=== PATIENT | male | born 1945 | race Caucasian/White ===

== ENCOUNTER 2018-04-23 19:00 | Inpatient (IN) ==
--- NOTE | 2018-04-23 19:54 | ED ---
HPI General Chief Complaint: Diabetic Stated Complaint: Diabetic Time Seen by Provider: 04/23/18 19:59 Source: patient, family () and EMS Mode of arrival: EMS Limitations: no limitations History of Present Illness HPI narrative: 73-year-old male presents to the emergency department from home by EMS transport after noticed him to have somnolence and an episode of 10 minutes of syncope or not responding to her. Paramedics noted patient was somnolent and had a low blood sugar and was administered D10. Patient's blood sugar was approximately 50. Upon arrival to the emergency department after D10 patient's blood sugar went up to 200 and then has dropped back down to 105. reports symptoms began approximate hour before she called paramedics. Patient states that he does not recall all details just members sitting in the car not feeling well while he was waiting for his to go to [employer] and come back out. states that she came back from [employer] and noticed that he was drowsy and that he stated that he did not feel well she gave him some candy did not seem to improve his symptoms he refused to have EMS called she was able to finally get him to the backseat and drive the car home when she came home she checked his blood sugar noticed it was 60 and she gave him some glucose but he will did not seem to take it and then he had a passing out spell and remained unresponsive to her until the paramedics arrived and they noticed his blood sugar to be less than 50 that gave him deep tendons mentation and started to improve in route to the hospital. There was no seizure activity noted. There was no trauma or injury noted. Patient denies any chest pain. Patient does complain of some headache not sudden onset not thunderclap and not worst ever. No medications were taken for headache pain. No nausea or vomiting. Patient did have marked diaphoresis consistent with hypoglycemic episode. Patient denies any pain at this time except for headache pain has no confusion at this time although feels somewhat forgetful has no blurred vision double vision or loss of vision. Patient denies any difficulty with speaking states that he has not had any difficulty speaking but while his blood sugar was low he did have some confusion but that resolved as his blood sugar has now returned to normal. MD complaint: Reports loss of consciousness and felt faint; Denies seizure Onset (ago): hour(s) Duration of episode: 1 -: minutes(s) ("about 10 minutes") Description of event: Reports post-event confusion; Denies tonic-clonic movements, focal shaking, incontinence, stopped breathing, lost pulse and CPR performed Prodromal symptoms: Reports headache, lightheaded and diaphoresis; Denies vision changes, chest pain, palpitations, heart racing, shortness of breath, vertigo and AICD discharge Witnessed: yes - by bystander () Context: Reports at rest; Denies during exertion, getting out of bed, after urination, standing up, new medication, medication non-compliance, alcohol use, illicit drug use, recent illness and related to severe pain Injuries sustained associated with event: Reports none Current symptoms: Reports headache and weakness History: Reports history of CAD (CABG); Denies seizure disorder, previous syncopal episode, seizure disorder, pacemaker, AICD and family history of sudden Treatments prior to arrival: Reports glucose and IV fluids Related Data Home Medications Medication Instructions Recorded Confirmed aspirin 81 mg PO DAILY 11/16/17 04/23/18 atorvastatin [Lipitor] 1 tab PO DAILY 11/16/17 04/23/18 carvedilol 12.5 mg PO BID 11/16/17 04/23/18 insulin NPH and regular human 20 unit SUB-Q TID 11/16/17 04/23/18 [Novolin 70/30 U-100 Insulin] insulin glargine [Lantus U-100 40 unit SUB-Q HS 11/16/17 04/23/18 Insulin] lisinopril 5 mg PO DAILY 11/16/17 04/23/18 Allergies Allergy/AdvReac Type Severity Reaction Status Date / Time No Known Allergies Allergy Verified 04/23/18 19:29 Review of Systems ROS: all other systems reviewed are negative [facility] Medical History Medical History DM type 2 (diabetes mellitus, type 2) (Acute) HTN (hypertension) (Acute) Heart attack (Acute) High cholesterol (Acute) Surgical History Surgical History H/O kidney removal (Acute) S/P CABG x 5 (Acute) Social History Social History Substance History: No History of Abuse Second Hand Smoke Exposure: No Smoking Status: Former smoker How Often Do You Have a Drink Containing Alcohol: Never Recent Travel in [facility] within the Last 8 Weeks: No Recent Out of Country Travel within the Last 8 Weeks: No Immunization History Tetanus Immunization: <5 Years Exam Narrative Exam Narrative: GENERAL: [-] SKIN: Focused skin assessment warm/dry. HEAD: Atraumatic. Normocephalic. EYES: Pupils equal and round. No scleral icterus. No injection or drainage. ENT: No nasal bleeding or discharge. Mucous membranes pink and moist. NECK: Trachea midline. No JVD. CARDIOVASCULAR: Regular rate and rhythm. No murmur appreciated. RESPIRATORY: No accessory muscle use. Clear to auscultation. Breath sounds equal bilaterally. GASTROINTESTINAL: Abdomen soft, non-tender, nondistended. Hepatic and splenic margins not palpable. MUSCULOSKELETAL: No obvious deformities. No clubbing. No cyanosis. No edema. NEUROLOGICAL: Awake and alert. No obvious cranial nerve deficits. Motor grossly within normal limits. Normal speech. PSYCHIATRIC: Appropriate mood and affect; insight and judgment normal. Course Initial Documented Vital Signs Temperature 98.9 F 04/23/18 19:15 Pulse Rate 51 L 04/23/18 19:15 Respiratory Rate 16 04/23/18 19:15 Blood Pressure 145/76 H 04/23/18 19:15 Pulse Oximetry 98 04/23/18 19:15 Last Documented Vital Signs Temperature 98.9 F 04/23/18 19:15 Pulse Rate 49 L 04/23/18 19:36 Respiratory Rate 16 04/23/18 19:36 Blood Pressure 141/72 H 04/23/18 19:36 Pulse Oximetry 99 04/23/18 19:36 Critical Care Time Critical Care Time: Yes Total Critical Care Time: 30 Attestation: Aggregate critical care time was 30 minutes. Time to perform other separately billable procedures was not included in the critical care time. My time did not include minutes spent treating any other patients simultaneously or on activities that did not directly contribute to the patient's treatment. The services I provided to this patient were to treat and/or prevent clinically significant deterioration that could result in: Arrhythmia cardiogenic shock I provided critical care services requiring my management, as noted below: Chart data review, documentation time, medication orders and management, vital sign assessments/reviewing monitor data, ordering and reviewing lab tests, ordering and interpreting/reviewing x-rays and diagnostic studies, care of the patient and discussion of the patient with the admitting physicians. Medical Decision Making [facility] Narrative Medical decision making narrative: : Aurea [phone] Patient placed on practice performance manager with continuous pulse oximetry IV access obtained specimens collected and sent for resulting repeat glucose shows that blood sugar has dropped from previous post D10 to 20 down to 105 patient given dose of glucagon as well as IV fluids EKG performed sinus bradycardia rate 5049 with borderline left axis deviation no acute ST elevation injury pattern or ectopy noted CBC with automated differential total white cell count is normal at 7100, 70% neutrophils mild thrombocytopenia platelet count 130,000 normal hemoglobin 1.5 chemistries remarkable for renal insufficiency which has worsened since last BUN and creatinine currently 32 and 2.8 this is mildly worse bicarb is normal at 23 potassium is normal at 4.6 serum glucose 147 magnesium is 2.1 Troponin I is less than 0.[address] brain noncontrast is negative for acute process and neurologic exam was negative except for some mild drowsiness but had otherwise normal exam and NIH SS of 0 chest x-ray is negative for acute process Patient given meal Review of medical records indicates heart rate typically is in the 70 range bradycardic for him patient does take carvedilol 12.5 mg twice daily but is normotensive and otherwise asymptomatic. Accepted by Dr Mata for admission: syncope; sinus bradycardia; symptomatic hypoglycemia; acute on chronic renal insufficiency Medical Screen Exam Complete: Yes Emergency Medical Condition: Yes Lab Data Result diagrams: 04/23/18 19:10 04/23/18 19:10 Lab Results 04/23/18 04/23/18 04/23/18 Range/Units 19:10 19:10 19:10 CBC w Diff Auto diff final WBC 7.1 (4.0-11.0) th/mm3 RBC 3.79 L (4.50-5.90) mil/mm3 Hgb 11.5 L (13.0-17.0) gm/dL Hct 34.7 L (39.0-51.0) % MCV 91.6 (80.0-100.0) fL MCH 30.4 (27.0-34.0) pg MCHC 33.2 (32.0-36.0) % RDW 13.1 (11.6-17.2) % Plt Count 130 L (150-450) th/mm3 MPV 8.7 (7.0-11.0) fL Neut % (Auto) 70.4 H (16.0-70.0) % Lymph % (Auto) 15.9 (9.0-44.0) % Barbour % (Auto) 10.0 H (0.0-8.0) % Eos % (Auto) 3.1 (0.0-4.0) % Baso % (Auto) 0.6 (0.0-2.0) % Neut # (Auto) 5.1 (1.8-7.7) th/mm3 Lymph # (Auto) 1.1 (1.0-4.8) th/mm3 Barbour # (Auto) 0.7 (0.0-0.9) th/mm3 Eos # (Auto) 0.2 (0.0-0.4) th/mm3 Baso # (Auto) 0.0 (0.0-0.2) th/mm3 WBC Differential . Differential Comment . PT 10.6 (9.8-11.6) sec INR 1.0 Ratio APTT 27.3 (23.4-31.7) sec Sodium 138 (136-145) meq/L Potassium 4.6 (3.5-5.1) meq/L Chloride 108 H (98-107) meq/L Carbon Dioxide 23.3 (21.0-32.0) meq/L Anion Gap 7 (5-15) meq/L BUN 32 H (7-18) mg/dL Creatinine 2.80 H (0.60-1.30) mg/dL Estimated GFR 22 L (>89) mL/min POC Glucose (68-110) mg/dl Random Glucose 104 (74-106) mg/dL Calcium 9.0 (8.5-10.1) mg/dL Magnesium 2.1 (1.5-2.5) mg/dL Troponin I Less than 0.02 L (0.02-0.05) ng/mL B-Natriuretic Peptide (0-100) pg/mL 04/23/18 04/23/18 Range/Units 19:10 20:37 CBC w Diff WBC (4.0-11.0) th/mm3 RBC (4.50-5.90) mil/mm3 Hgb (13.0-17.0) gm/dL Hct (39.0-51.0) % MCV (80.0-100.0) fL MCH (27.0-34.0) pg MCHC (32.0-36.0) % RDW (11.6-17.2) % Plt Count (150-450) th/mm3 MPV (7.0-11.0) fL Neut % (Auto) (16.0-70.0) % Lymph % (Auto) (9.0-44.0) % Barbour % (Auto) (0.0-8.0) % Eos % (Auto) (0.0-4.0) % Baso % (Auto) (0.0-2.0) % Neut # (Auto) (1.8-7.7) th/mm3 Lymph # (Auto) (1.0-4.8) th/mm3 Barbour # (Auto) (0.0-0.9) th/mm3 Eos # (Auto) (0.0-0.4) th/mm3 Baso # (Auto) (0.0-0.2) th/mm3 WBC Differential Differential Comment PT (9.8-11.6) sec INR Ratio APTT (23.4-31.7) sec Sodium (136-145) meq/L Potassium (3.5-5.1) meq/L Chloride (98-107) meq/L Carbon Dioxide (21.0-32.0) meq/L Anion Gap (5-15) meq/L BUN (7-18) mg/dL Creatinine (0.60-1.30) mg/dL Estimated GFR (>89) mL/min POC Glucose 147 (68-110) mg/dl Random Glucose (74-106) mg/dL Calcium (8.5-10.1) mg/dL Magnesium (1.5-2.5) mg/dL Troponin I (0.02-0.05) ng/mL B-Natriuretic Peptide 61 (0-100) pg/mL Imaging Data Radiologist's impression: Chest X-Ray 04/23/18 19:50 CONCLUSION: No acute findings. Previous sternotomy. Head CT 04/23/18 19:50 CONCLUSION: 1. No acute intracranial abnormalities. . . Discharge Plan Discharge Disposition Patient Disposition: ED Admit(ED Internal Use Only) Discharge Condition Condition: Stable Discharge Order Discharge Orders: ED Use Only Admit Order (Routine); Ordered 04/23/18 Ordered By: Maia Joaquin Discharge Details Diagnosis: Syncope, Sinus bradycardia, Hypoglycemia due to type 2 diabetes mellitus, Renal insufficiency Physicians Team ED Provider: Maia Joaquin Primary Care Provider: Parag Marion Rxs /Orders / Referrals /Forms Prescriptions: No Action carvedilol 6.25 mg Tablet 12.5 mg PO BID RF: 0 atorvastatin [Lipitor] 20 mg Tablet 1 tab PO DAILY RF: 0 insulin glargine [Lantus U-100 Insulin] 100 unit/mL Solution 40 unit SUB-Q HS RF: 0 lisinopril 20 mg Tablet 5 mg PO DAILY RF: 0 insulin NPH and regular human [Novolin 70/30 U-100 Insulin] 100 unit/mL (70-30 ) Suspension 20 unit SUB-Q TID RF: 0 aspirin 81 mg Tablet,Chewable 81 mg PO DAILY RF: 0 Status ED Status: With Doctor
[2018-04-23 20:15] LABS: Baso % (Auto) 0.6 % (0.0-2.0); Eos # (Auto) 0.2 th/mm3 (0.0-0.4); Eos % (Auto) 3.1 % (0.0-4.0); Hematocrit 34.7 % (39.0-51.0); Hemoglobin 11.5 gm/dL (13.0-17.0); Lymph # (Auto) 1.1 th/mm3 (1.0-4.8); Lymph % (Auto) 15.9 % (9.0-44.0); Mean Corpuscular HGB Conc 33.2 % (32.0-36.0); Mean Corpuscular Hemoglobin 30.4 pg (27.0-34.0); Mean Corpuscular Volume 91.6 fL (80.0-100.0); Mean Platelet Volume 8.7 fL (7.0-11.0); Mono # (Auto) 0.7 th/mm3 (0.0-0.9); Neut # (Auto) 5.1 th/mm3 (1.8-7.7); Neut % (Auto) 70.4 % (16.0-70.0); Platelet Count 130 th/mm3 (150-450); Red Blood Count 3.79 mil/mm3 (4.50-5.90); Red Cell Distribution Width 13.1 % (11.6-17.2); White Blood Count 7.1 th/mm3 (4.0-11.0)
--- NOTE | 2018-04-23 20:21 | XR ---
EXAM DATE: 04/23/2018 8:12 PM EST AGE/SEX: 73 years / Male INDICATIONS: Syncope. CLINICAL DATA: This is the patient's initial encounter. Patient reports that signs and symptoms have been present for 1 day and indicates a pain score of 0/10. MEDICAL/SURGICAL HISTORY: Hypertension. Diabetes mellitus type II. Myocardial infarction. CAB G. COMPARISON: POI, XR CHEST PA AND LAT, 11/24/2017. . FINDINGS: No focal consolidation or significant effusion. Previous sternotomy. No pneumothorax. Heart size uppe r limits normal. CONCLUSION: No acute findings. Previous sternotomy. Electronically signed by: Joni Meek MD Board Certified Radiologist 04/23/2018 8:20 PM EST
[2018-04-23 20:23] LABS: Chloride 108 meq/L (98-107); Potassium 4.6 meq/L (3.5-5.1); Sodium 138 meq/L (136-145)
[2018-04-23 20:26] LABS: Anion Gap 7 meq/L (5-15); Blood Urea Nitrogen 32 mg/dL (7-18); Carbon Dioxide 23.3 meq/L (21.0-32.0); Glucose,Random 104 mg/dL (74-106); Magnesium 2.1 mg/dL (1.5-2.5)
[2018-04-23 20:28] LABS: Activated Partial Thrombo Time 27.3 sec (23.4-31.7); Prothrombin Time 10.6 sec (9.8-11.6)
[2018-04-23 20:29] LABS: Glomerular Filtration Rate 22 mL/min (>89)
--- NOTE | 2018-04-23 20:43 | CT ---
EXAM DATE: 04/23/2018 8:30 PM EST AGE/SEX: 73 years / Male INDICATIONS: Syncope, now has headache CLINICAL DATA: This is the patient's initial encounter. Patient reports that signs and symptoms have been present for 1 day and indicates a pain score of 3/10. MEDICAL/SURGICAL HISTORY: Cardiovascular disease. Diabetes. Hypertension. CABG. RADIATION DOSE: 58.18 CTDI (mGy) COMPARISON: No prior exams available for comparison. TECHNIQUE: CT of the head without contrast. Using automated exposure control and adjustment of the mA and/or kV according to patient size, radiation dose was kept as low as reasonably achievable to ob tain optimal diagnostic quality images. DICOM format image data is available electronically for revi ew and comparison. FINDINGS: Cerebrum: The ventricles are normal for age. No evidence of midline shift, mass lesion, hemorrhage or acute infarction. No extraaxial fluid collections are seen. Posterior Fossa: The cerebellum and brainstem are intact. The 4th ventricle is midline. The cerebe llopontine angle is unremarkable. Extracranial: The visualized portion of the orbits is intact. Skull: The calvaria is intact. No evidence of skull fracture. CONCLUSION: 1. No acute intracranial abnormalities. . . Electronically signed by: Joni Meek MD Board Certified Radiologist 04/23/2018 8:42 PM EST
[2018-04-23] MEDS ORDERED: Acetaminophen 500 MG Tablet PO ONE (20:52)
[2018-04-23] MEDS ORDERED: Sodium Chlor 0.9% Inj 500 ML IV.SIG SCH (21:00)
[2018-04-23] MEDS ORDERED: Bisacodyl 10 MG Supp RECTAL PRN (21:11)
[2018-04-23] MEDS ORDERED: Acetaminophen 325 MG Tablet PO PRN (21:11)
[2018-04-23] MEDS ORDERED: Dextrose 50% in Water 50 ML Vial IV.PUSH PRN (21:11)
--- NOTE | 2018-04-23 21:26 | ECG ---
Date Performed: 04/23/2018 Time Performed: 20:08:41 PTAGE: 73 years EKG: SINUS BRADYCARDIA BORDERLINE LEFT AXIS DEVIATION NONSPECIFIC T-WAVE ABNORMALITY BORDERLINE ECG No significant change from prior electrocardiogram. PREVIOUS TRACING : 09/24/2015 06.37 DOCTOR: Андрей Samuels Interpretating Date/Time 04/23/2018 21:25:36
[2018-04-23] MEDS: Sod Chloride 0.9% Inj 1,000 ML IV.CONT SCH (21:42)
[2018-04-23 23:16] LABS: Bilirubin,Urine Negative (Negative); Clarity,Urine Clear (Clear); Color,Urine Yellow (Yellw/Straw); Glucose,Urine (UA) Negative (Negative); Leukocyte Esterase,Urine Negative (Negative); Nitrite,Urine Negative (Negative); Urobilinogen,Urine 0.2 mg/dL (Less than 2)
[2018-04-23 23:21] LABS: Bacteria,Urine Rare /hpf; Mucus,Urine Rare /lpf (Occasional); WBC,Urine 0-5 /hpf (0-5)
[2018-04-24] MEDS: Sod Chloride 0.9% Inj 1,000 ML IV.CONT SCH (01:53)
[2018-04-24 06:10] LABS: Chloride 112 meq/L (98-107); Sodium 142 meq/L (136-145)
[2018-04-24 06:12] LABS: Baso % (Auto) 0.5 % (0.0-2.0); Eos # (Auto) 0.2 th/mm3 (0.0-0.4); Eos % (Auto) 3.2 % (0.0-4.0); Hematocrit 35.8 % (39.0-51.0); Hemoglobin 11.9 gm/dL (13.0-17.0); Lymph # (Auto) 1.2 th/mm3 (1.0-4.8); Lymph % (Auto) 23.5 % (9.0-44.0); Mean Corpuscular HGB Conc 33.4 % (32.0-36.0); Mean Platelet Volume 8.4 fL (7.0-11.0); Mono # (Auto) 0.5 th/mm3 (0.0-0.9); Mono % (Auto) 10.5 % (0.0-8.0); Neut % (Auto) 62.3 % (16.0-70.0); Platelet Count 136 th/mm3 (150-450); Red Blood Count 3.85 mil/mm3 (4.50-5.90); Red Cell Distribution Width 13.3 % (11.6-17.2); White Blood Count 4.9 th/mm3 (4.0-11.0)
[2018-04-24 06:25] LABS: Alanine Aminotransferase 30 U/L (12-78); Albumin 3.5 g/dL (3.4-5.0); Alkaline Phosphatase 86 U/L (45-117); Anion Gap 8 meq/L (5-15); Aspartate Aminotransferase 21 U/L (15-37); Blood Urea Nitrogen 29 mg/dL (7-18); Calcium 8.2 mg/dL (8.5-10.1); Carbon Dioxide 21.7 meq/L (21.0-32.0); Glomerular Filtration Rate 27 mL/min (>89); Glucose,Random 113 mg/dL (74-106); Total Protein 6.8 g/dL (6.4-8.2)
[2018-04-24] MEDS ORDERED: Senna/Docusate Sodium 8.6/50 MG Tablet PO SCH (09:00)
[2018-04-24 10:23] VITALS: BP 151/67; PULSE 71; RESP 22; TEMP 96.8; O2SAT 96
[2018-04-24 11:11] LABS: Hemoglobin A1c 7.9 % (4.3-6.0)
--- NOTE | 2018-04-24 12:24 | ECHRPT ---
Indication: Syncope CONCLUSIONS Normal left ventricular size. Wall thickness is measured at the upper limits of normal. The left ventricular systolic function is normal with an estimated ejection fraction in the range of 55-60%. The left atrial size is mildly dilated. Mitral annular calcification is present. Aortic valve sclerosis is present. Trace aortic valve regurgitation. Mild aortic valve stenosis. There is trace tricuspid valve regurgitation. The estimated pulmonary arterial pressure is 18 mmHg. BP: / HR: Rhythm: MEASUREMENTS (Male / Female) Normal Values Technical Quality:Technically difficult study 2D ECHO LV Diastolic Diameter PLAX 4.8 cm 4.2 - 5.9 / 3.9 - 5.3 cm LV Systolic Diameter PLAX 2.9 cm IVS Diastolic Thickness 1.0 cm 0.6 - 1.0 / 0.6 - 0.9 cm LVPW Diastolic Thickness 1.0 cm 0.6 - 1.0 / 0.6 - 0.9 cm LV Relative Wall Thickness 0.4 RV Internal Dim ED PLAX 4.4 cm LVOT Diameter 2.2 cm Aortic Root Diameter 3.6 cm LA Systolic Diameter LX 4.0 cm 3.0 - 4.0 / 2.7 - 3.8 cm DOPPLER AV Peak Velocity 178.5 cm/s AV Peak Gradient 12.7 mmHg AV Mean Gradient 10.0 mmHg AV Velocity Time Integral 39.9 cm LVOT Peak Velocity 92.3 cm/s LVOT Peak Gradient 3.4 mmHg AV Area Cont Eq pk 2.0 cm Mitral E Point Velocity 89.8 cm/s Mitral A Point Velocity 117.0 cm/s Mitral E to A Ratio 0.8 LV E' Lateral Velocity 7.5 cm/s Mitral E to LV E' Lateral Ratio 12.0 LV E' Septal Velocity 7.4 cm/s Mitral E to LV E' Septal Ratio 12.1 TR Peak Velocity 144.0 cm/s TR Peak Gradient 8.3 mmHg Right Atrial Pressure 10.0 mmHg Pulmonary Artery Systolic Pressu 18.3 mmHg Right Ventricular Systolic Press 18.3 mmHg PV Peak Velocity 90.9 cm/s PV Peak Gradient 3.3 mmHg FINDINGS LEFT VENTRICLE Normal left ventricular size. Wall thickness is measured at the upper limits of normal. The left ventricular systolic function is normal with an estimated ejection fraction in the range of 55-60%. RIGHT VENTRICLE Normal right ventricular size and systolic function. LEFT ATRIUM The left atrial size is mildly dilated. RIGHT ATRIUM The right atrial size is normal. ATRIAL SEPTUM Normal atrial septal thickness without atrial level shunting by limited color doppler interrogation. AORTA The aortic root and proximal ascending aorta are normal in size on limited imaging. MITRAL VALVE Mitral annular calcification is present. AORTIC VALVE Aortic valve sclerosis is present. Trace aortic valve regurgitation. Mild aortic valve stenosis. TRICUSPID VALVE There is trace tricuspid valve regurgitation. The estimated pulmonary arterial pressure is 18 mmHg. PULMONARY VALVE The pulmonary valve is not well visualized. VESSELS The inferior vena cava was not well visualized. PERICARDIUM No pericardial effusion. Kamlesh Ortiz MD, FACC, FSCAI (Electronically Signed) Final Date:24 April 2018 12:22
--- NOTE | 2018-04-24 13:05 | P.HPIM ---
History of Present Illness Primary Care Physician: Parag Marion DO Chief Complaint: Decreased level of consciousness History of Present Illness: 73-year-old male with known history of hypertension, hyper lipidemia, coronary disease, diabetes who presented to hospital because of decreased level of consciousness, altered mentation. Patient states that he was in his normal state of health yesterday when he took his morning insulin. His blood glucose monitor at that time was 150, he took 30 units of Novolin 70/30 insulin. He ate 2 pieces of toast for breakfast and then proceeded to go outside and pressure washed his driveway. Patient states that he did not stop for lunch and he continued to pressure wash and exert himself up until 4 PM in the afternoon. The patient then went to [place] to go shopping with his and he started having symptoms of low blood sugars so he took 2 glucose tablets without any significant benefit. Patient indicates that his drove him home and the patient had an episode of decreased level of consciousness where he was difficult for his to arouse him. She checked his blood sugar and it was 60. [facility] was called and when they arrive his blood sugar was less than 50 the patient was given D10 and the patient blood sugar was registering 50 at the time. Patient was given another dose of D10 and his blood sugar went up to 200 and then back down to 105. Patient became more arousable and once his blood sugar returned to normal his confusion had resolved. It was recommended by the ER physician that the patient be admitted to hospital for further workup and management. Patient indicates that he has had episodes of low blood glucose before which she is usually able to manage them on his own at home with glucose tablets or eating. However he states that this time he came on to him too quickly. Patient denies any chest pain, shortness of breath, dyspnea, lightheadedness, dizziness, headache, abdominal pain, nausea, vomiting Inpatient Certification Inpatient Certification: I certify that the inpatient services were ordered in accordance with Medicare regulations governing the order. This includes certification that hospital inpatient services are reasonable and necessary and in the case of services not specified as inpatient-only under 42 CFR 419.22(n), that they are appropriately provided as inpatient services in accordance to with the 2-midnight benchmark under 43 CFR 412.3(e) Estimated Total Length of Stay (Days): 2 Plans for Post Hospital Care: Not yet determined Review of Systems Review of Systems: all other systems reviewed are negative Neurologic: Reports other (Decreased level consciousness) [facility] Medical History Medical History Coronary artery disease (Acute) DM type 2 (diabetes mellitus, type 2) (Acute) HTN (hypertension) (Acute) Heart attack (Acute) High cholesterol (Acute) Surgical History Surgical History H/O kidney removal (Acute) S/P CABG x 5 (Acute) Social History Social History Substance History: No History of Abuse Second Hand Smoke Exposure: Yes Smoking Status: Former smoker Tobacco Type: Cigarettes Number of Pack-Years (if former smoker): 20 Smoking End Date: Patient quit smoking 17 years ago How Often Do You Have a Drink Containing Alcohol: Never Recent Travel in [facility] within the Last 8 Weeks: No Recent Out of Country Travel within the Last 8 Weeks: No Immunization History Tetanus Immunization: <5 Years Hx Influenza Vaccine This Season: Yes Medications and Allergies Allergies Allergy/AdvReac Type Severity Reaction Status Date / Time No Known Allergies Allergy Verified 04/23/18 19:29 Home Medications Medication Instructions Recorded Confirmed Type aspirin 81 mg PO DAILY 11/16/17 04/23/18 History atorvastatin [Lipitor] 1 tab PO DAILY 11/16/17 04/23/18 History carvedilol 12.5 mg PO BID 11/16/17 04/23/18 History insulin NPH and regular human 20 unit SUB-Q TID 11/16/17 04/23/18 History [Novolin 70/30 U-100 Insulin] insulin glargine [Lantus U-100 40 unit SUB-Q HS 11/16/17 04/23/18 History Insulin] lisinopril 5 mg PO DAILY 11/16/17 04/23/18 History Active Medications: Active Medications Acetaminophen (Tylenol) 650 mg PO Q4H PRN PRN Reason: Temp > 100.4 Al Hydroxide/Mg Hydroxide (Milk Of Magnesia Liq) 30 ml PO Q12H PRN PRN Reason: Mild Constipation Aspirin (Aspirin Chew) 81 mg PO DAILY [facility] Last Admin: 04/24/18 09:02 Dose: 81 mg Atorvastatin Calcium (Lipitor) 20 mg PO DAILY [facility] Last Admin: 04/24/18 09:02 Dose: 20 mg Bisacodyl (Dulcolax Supp) 10 mg RECTAL DAILY PRN PRN Reason: SEVERE CONSITIPATION Dextrose (D50w Vial) 50 ml IV.PUSH UNSCH PRN PRN Reason: PER HYPOGLYCEMIA PROTOCOL Glucagon (Glucagon Inj) 1 mg OTHER PRN PRN PRN Reason: for Hypoglycemia Protocol Sodium Chloride (Ns Inj) 1,000 mls @ 100 mls/hr IV.CONT .Q10H [facility] Last Admin: 04/24/18 01:53 Dose: 100 mls/hr Lactulose (Lactulose Liq) 30 ml PO DAILY PRN PRN Reason: SEVERE CONSITIPATION Ondansetron HCl (Zofran Inj) 4 mg IV.PUSH Q6H PRN PRN Reason: NAUSEA OR VOMITING Senna/Docusate Sodium (Kia-Colace) 1 tab PO BID [facility] Last Admin: 04/24/18 09:02 Dose: 1 tab Sennosides (Senokot) 17.2 mg PO Q12H PRN PRN Reason: Moderate Constipation Sodium Chloride (Ns Flush) 2 ml IV.FLUSH PRN PRN PRN Reason: FLUSH AFTER USING IV ACCESS Sodium Chloride (Ns Flush) 2 ml IV.FLUSH BID [facility] Last Admin: 04/24/18 09:02 Dose: 2 ml Physical Exam Vital signs: Vital Signs 04/23/18 19:15 04/23/18 19:36 04/23/18 21:58 Temperature 98.9 F Pulse Rate 52 L 49 L Respiratory Rate 16 16 16 Blood Pressure 145/76 H 141/72 H Pulse Oximetry 99 99 04/23/18 22:41 04/23/18 22:45 04/24/18 00:00 Temperature 98.0 F Pulse Rate 48 L 57 L 58 L Respiratory Rate 16 16 16 Blood Pressure 134/62 136/66 162/70 H Pulse Oximetry 99 99 97 04/24/18 00:05 04/24/18 04:16 04/24/18 08:00 Temperature 96.8 F L Pulse Rate 50 L 58 L 71 Respiratory Rate 16 22 Blood Pressure 162/70 H 151/67 H Pulse Oximetry 97 96 Intake & Output 04/23/18 04/24/18 04/24/18 18:59 06:59 18:59 Intake Total 1500 / 1500 0 / 0 Balance 1500 / 1500 0 / 0 Weight 103.5 kg Intake: IV 1500 / 1500 NS Inj 1,000 ML @ 100 mls/hr IV 1000 / 1000 .CONT .Q10H [facility] Rx#:[id number] NS Inj 500 ML @ 1000 mls/hr IV. 500 / 500 SIG BOLUS [facility] Rx#:[id number] Oral 0 / 0 Other: # Voids 0 Narrative: GENERAL: Well-developed, well-nourished, in no acute distress. alert and orientated HEENT: Head is normocephalic without any lesions or masses noted. Facial features are symmetric. Eyes: Pupils equal round reactive to light. Extraocular muscles are intact. Conjunctivae were clear. Oropharyngeal: Pharynx without any erythema edema. Tongue is midline without deviation. Buccal mucosa is moist without any masses or lesions NECK: Supple without any masses. Trachea midline no deviation. No JVD, no bruits are appreciated CARDIAC: Regular rhythm, regular rate. S1/S2 are heard. 2/6 ejection murmur noted in the aortic region. No gallops or rubs. LUNGS: Clear to auscultation bilaterally. No wheeze, rhonchi or rales. No use of accessory muscles on inspiration or expiration. ABDOMEN: Soft, nontender. Nondistended. Bowel sounds heard in all 4 quadrants. No organomegaly or masses. Negative rebound, negative guarding EXTREMITIES: No edema, pulses are equal bilaterally. No cyanosis or clubbing NEUROLOGY: Mood and affect appear appropriate. Cranial nerves II through XII grossly intact. Muscle strength 5/5 in upper and lower extremities bilaterally. Deep tendon reflexes are 2+ in upper and lower extremities bilaterally. Results Labs CBC & Chem 7: 04/24/18 05:52 04/24/18 05:52 Imaging Impressions Chest X-Ray 04/23/18 19:50 CONCLUSION: No acute findings. Previous sternotomy. Head CT 04/23/18 19:50 CONCLUSION: 1. No acute intracranial abnormalities. . . Caprini VTE Risk Assessment Caprini VTE Risk Assessment: Moderate/High Risk (score >= 2) Caprini Risk Assessment Model: Point Value = 1 Point Value = 2 Point Value = 3 Point Value = 5 Age 41-60 Minor surgery BMI > 25 kg/m2 Swollen legs Varicose veins or History of unexplained or recurrent spontaneous Oral contraceptives or hormone replacement Sepsis (< 1 month) Serious lung disease, including pneumonia (< 1 month) Abnormal pulmonary function Acute myocardial infarction Congestive heart failure (< 1 month) History of inflammatory bowel disease Medical patient at bed rest Age 61-74 Arthroscopic surgery Major open surgery (> 45 min) Laparoscopic surgery (> 45 min) Malignancy Confined to bed (> 72 hours) Immobilizing plaster cast Central venous access Age >= 75 History of VTE Family history of VTE Factor V Leiden Prothrombin [id number] Lupus anticoagulant Anticardiolipin antibodies Elevated serum homocysteine Heparin-induced thrombocytopenia Other congenital or acquired thrombophilia Stroke (< 1 month) Elective arthroplasty Hip, pelvis, or leg fracture Acute spinal cord injury (< 1 month) Prophylaxis Regimen: Total Risk Factor Score Risk Level Prophylaxis Regimen 0-1 Low Early ambulation 2 Moderate Order ONE of the following: *Sequential Compression Device (SCD) *Heparin 5000 units SQ BID 3-4 Higher Order ONE of the following medications: *Heparin 5000 units SQ TID *Enoxaparin/Lovenox 40 mg SQ daily (WT < 150 kg, CrCl > 30 mL/min) *Enoxaparin/Lovenox 30 mg SQ daily (WT < 150 kg, CrCl > 10-29 mL/min) *Enoxaparin/Lovenox 30 mg SQ BID (WT < 150 kg, CrCl > 30 mL/min) AND/OR *Sequential Compression Device (SCD) 5 or more Highest Order ONE of the following medications: *Heparin 5000 units SQ TID (Preferred with Epidurals) *Enoxaparin/Lovenox 40 mg SQ daily (WT < 150 kg, CrCl > 30 mL/min) *Enoxaparin/Lovenox 30 mg SQ daily (WT < 150 kg, CrCl > 10-29 mL/min) *Enoxaparin/Lovenox 30 mg SQ BID (WT < 150 kg, CrCl > 30 mL/min) AND *Sequential Compression Device (SCD) Assessment and Plan Plan Acute symptomatic hypoglycemia in an insulin-dependent diabetic patient with altered mental status, decreased level of consciousness Patient had rather severe hypoglycemic reaction requiring multiple doses of glucose tablets, D50, D10 Patient is much improved at this time with blood glucose levels ranging from 113-196 Hemoglobin A1c 7.9 Accu-Cheks with sliding scale insulin Continue to hold Lantus at this time Counseled patient extensively on proper diabetic management, not to skip meals while exerting himself. Hypertension, hyperlipidemia, coronary artery disease Upon initial presentation patient did have some mild sinus bradycardia from 48- 58 This is multifactorial with the patient having acute hypoglycemia, patient is on beta-maria t After glycemic control has been achieved and patient Coreg was held, heart rate is much improved Continue home medications, decrease dose of Coreg Patient was ruled out for acute coronary event with serial cardiac enzymes that remain negative EKG is reviewed by myself which shows sinus bradycardia with nonspecific T wave abnormality Echocardiogram shows normal systolic function with ejection fraction 55-60%. PA peak pressure 18 mmhg, aortic valve sclerosis is present, mild aortic valve stenosis DVT prevention Sequential compression devices Discussed Condition With: Patient, nursing staff, Dr. Sherwood Discharge Planning: Patient originally anticipated to need at Least 2 midnights for recovery, but his overall assessment and status improved faster than expected. Discharge home in stable condition Activity: Ad joseline. Diet: Diabetic diet Medication per medication reconciliation Follow-up with primary medical doctor in 1 week H&P: Quality VTE Deep Vein Thrombosis/Pulmonary Embolism Present on Admission: No
[2018-04-24] MEDS ORDERED: Carvedilol 6.25 MG Tablet PO SCH (13:15)
[2018-04-24] MEDS ORDERED: Lisinopril 20 MG Tablet PO SCH (13:15)
== END 2018-04-24 13:12 | disposition home or self-care (01) | DRG 637 ==
LOC: PHED 19:00 → PHEDA 21:12 → PH3 22:32
PROVIDERS: ADMIT Hospitalist; ATTEND Hospitalist
CPT/HCPCS: 70450; 71010; 71045; 80048; 80053; 81001; 82948; 82962; 83036; 83520; 83735; 83880; 84484; 85025; 85610; 85730; 90774; 93005; 93306; 96374; 99291; C8952; J1610; J7030; J7040